=== PATIENT | female | born 1930 | race Caucasian/White ===

== ENCOUNTER 2016-04-29 12:18 | Observation (INO) | payer OTHER ==
[~2016-04-29] VITALS: Ht 160 cm; Wt 58.1 kg
[~2016-04-29 12:18] MED LIST: ACID CONTROL150 MG PO; ADULT LOW STREN81 M2 PO; ADVAIR HFA120 INHAL1 IH; ADVIL200 MG PO; ASPIR-LOW81 MG PO; ASPIRIN325 MG PO; ASPIRIN81 M1 PO; ASPIRIN81 M2 PO; ATORVASTATIN CA80 MG PO; ATROVENT 00.5 MG/2.5 IH; Aspirin E.C. PO; BACTRIM,SEPT1 TABLET PO; BENEMID500 MG PO; CARVEDILOL12.5 MG PO; CARVEDILOL3.125 MG PO; CARVEDILOL6.25 MG PO; CIPRO500 MG PO; CLOPIDOGREL75 MG PO; COLACE100 MG PO; COLCHICINE0.6 M1 PO; COLCRYS0.6 MG PO; COREG3.125 MG PO; COREG6.25 M1 PO; CORTISPORIN EAR10 ML BOTH EARS; COZAAR50 MG PO; Colchicine,Colcrys PO; Coreg PO; Cozaar PO; D-VERT25 MG; DELTASONE10 MG PO; DOCUSATE SODIU100 MG PO; DOXYCYCLINE HY100 MG PO; DUONEB 2.5-0.5 M3 ML IH; ENDOCET 5-3251 EACH PO; EXTRA STRENGTH500 M1 PO; FLAGYL500 MG PO; FUROSEMIDE40 MG PO; GUAIFENESI100 MG/5 M PO; ICY HOT CREAM35.4 G1 TP; IMDUR30 MG PO; IPRATR-ALBUTEROL3 ML IH; ISOSORBIDE DINI30 MG PO; ISOSORBIDE MONO30 MG PO; K-TAB10 MEQ PO; KEFLEX500 MG PO; KENALOG,ARISTOC80 GM TP; KETOCONAZOLE60 GM TP; KLOR-CON 1010 ME1 PO; KLOR-CON M1010 MEQ PO; Keflex PO; LASIX40 MG PO; LAXATIVE SUPPO1 EACH PR; LIPITOR80 MG PO; LO-DOSE ASPIRIN81 M1 PO; LOSARTAN POTAS100 MG PO; LOSARTAN POTASS50 MG PO; MECLIZINE HCL25 MG PO; METRONIDAZOLE500 MG PO; MIRALAX17 GM PO; MOTION SICKNESS25 M1 PO; MULTIVITAMIN1 EAC2 PO; NEOMYCIN-POLYMY10 M1 BOTH EARS; NEOMYCIN-POLYMYXIN-H LEFT EAR; NEXIUM 24HR20 MG PO; NITROQUICK0.4 MG SL; NORVASC10 MG PO; OMEPRAZOLE20 MG PO; PANTOPRAZOLE SO40 MG PO; PENNSAID112 GM TP; PERCOCET 5/31 TABLET PO; PLAVIX75 MG PO; POTASSIUM CHLO10 ME3 PO; POTASSIUM CHLO10 MEQ PO; PREDNISONE10 MG PO; PREDNISONE20 MG PO; PREDNISONE50 MG PO; PRILOSEC20 MG PO; PROAIR HFA8.5 GM; PROMETHAZINE HC25 M1 PO; PROTONIX40 MG PO; PROVENTIL,2.5 MG/3 M IH; RANITIDINE HCL150 M1 PO; ROBITUSSIN100 MG/5 M PO; SIMVASTATIN40 MG PO; SYMBICORT60 INHALA1 IH; SYMBICORT60 INHALAT IH; TAMSULOSIN HCL0.4 MG PO; THERAGRAN1 TABLET PO; TOBRAMYCIN-DEXAM5 ML BOTH EYES; TRAMADOL HCL50 MG PO; TYLENOL EXTRA500 MG PO; TYLENOL REGULA325 MG PO; ULTRAM50 MG PO; VANCOCIN HCL125 MG PO; VOLTAREN 1% GE100 GM TP; WOMEN'S DAILY1 EAC1 PO; XARTEMIS XR 7.1 EACH PO
[2016-04-29 13:37] LABS: HEMATOCRIT 29.4 % (36.0-46.0); MCH 26.3 PG (29.0-34.0); MEAN PLAT.VOLUME 11.1 uM^3 (9.5-12.4); RBC DIS.WIDTH-CV 20.1 % (11.8-14.6); RBC DIS.WIDTH-SD 60.6 % (39-53)
[2016-04-29 13:45] LABS: PLATELET COUNT 205 K/uL (156-360); RED BLOOD COUNT 3.46 M/uL (3.80-5.20); WHITE BLOOD COUNT 4.8 K/uL (4.1-10.2)
[2016-04-29 13:47] LABS: INTER. NORMALIZED RATIO 1.1; PROTHROMBIN TIME 10.7 (9.2-11.2); PTT 31.3 (25-32)
[2016-04-29 13:56] LABS: DELETE MACHINE DIFF? YES; TROP-I INTERPRETATION NEGATIVE; TROPONIN-I 0.02 ng/mL (0.0-0.30)
[2016-04-29 14:04] LABS: CHLORIDE 110 mEq/L (99-109); POTASSIUM 4.6 mEq/L (3.7-5.4); SODIUM 145 mEq/L (136-147)
[2016-04-29 14:05] LABS: GLUCOSE 112 mg/dL (70-99)
[2016-04-29 14:07] LABS: ANION GAP 11 MEQ/L (2-14)
[2016-04-29 14:09] LABS: GFR ESTIMATE (CALCULATED) 38 mL/min/
[2016-04-29 14:10] LABS: UREA NITROGEN (BUN) 17 mg/dL (9-23)
[2016-04-29 14:37] LABS: EOSINOPHIL (%) 1.3 % (0-5); EOSINOPHIL COUNT 0.1 K/uL (0-0.3); HEMATOLOGY COMMENT 1 SMEAR COMPATIBLE; IMMATURE GRANULOCYTE (%) 0.2 % (0.0-0.7); IMMATURE GRANULOCYTE COUNT 0.1 K/uL; LYMPHOCYTE COUNT 0.8 K/uL (1.0-2.8); MONOCYTE (%) 16.4 % (3-12); MONOCYTE COUNT 0.8 K/uL (0-0.8); NEUTROPHIL (%) 65.9 % (45-76); NEUTROPHIL COUNT 3.1 K/uL (1.8-6.4); PLAT.SUFFICIENCY ADEQUATE; USER ID TLW
[2016-04-29] MEDS ORDERED: LOSARTAN POTASS50 MG PO (15:06)
[2016-04-29] MEDS ORDERED: LOSARTAN POTAS100 MG PO (15:07)
[2016-04-29] MEDS ORDERED: FUROSEMIDE40 MG PO (15:09)
[2016-04-29] MEDS ORDERED: ISOSORBIDE MONO30 MG PO (15:09)
[2016-04-29] MEDS ORDERED: TRAMADOL HCL50 MG PO (15:10)
[2016-04-29] MEDS ORDERED: INHALER (15:12)
[2016-04-29 20:40] VITALS: BP 121/65
[2016-04-29 22:09] LABS: TROP-I INTERPRETATION NEGATIVE; TROPONIN-I 0.04 ng/mL (0.0-0.30)
[2016-04-30] VITALS: BP 123/60
[2016-04-30 04:00] VITALS: BP 100/45
[2016-04-30 05:35] LABS: HEMATOCRIT 30.2 % (36.0-46.0); MCH 25.7 PG (29.0-34.0); MCHC 30.1 G/DL (30.0-36.0); MCV 85.3 FL (83-99); MEAN PLAT.VOLUME 11.4 uM^3 (9.5-12.4); PLATELET COUNT 185 K/uL (156-360); RBC DIS.WIDTH-SD 60.8 % (39-53); RED BLOOD COUNT 3.54 M/uL (3.80-5.20); WHITE BLOOD COUNT 3.9 K/uL (4.1-10.2)
[2016-04-30 05:43] LABS: CHLORIDE 112 mEq/L (99-109); POTASSIUM 5.3 mEq/L (3.7-5.4); SODIUM 147 mEq/L (136-147)
[2016-04-30 05:45] LABS: GLUCOSE 132 mg/dL (70-99)
[2016-04-30 05:47] LABS: ANION GAP 10 MEQ/L (2-14); TOTAL BILIRUBIN 0.4 mg/dL (0.0-1.0)
[2016-04-30 05:49] LABS: ALKALINE PHOSPHATASE 63 IU/L (3-129); GFR ESTIMATE (CALCULATED) 32 mL/min/
[2016-04-30 05:50] LABS: UREA NITROGEN (BUN) 22 mg/dL (9-23)
[2016-04-30 05:54] LABS: TROP-I INTERPRETATION NEGATIVE; TROPONIN-I 0.01 ng/mL (0.0-0.30)
[2016-04-30 07:30] VITALS: BP 127/68
[2016-04-30 12:47] VITALS: BP 114/68
[2016-04-30 13:55] LABS: TROP-I INTERPRETATION NEGATIVE; TROPONIN-I 0.02 ng/mL (0.0-0.30)
[2016-04-30 16:08] VITALS: BP 117/63
[2016-04-30] MEDS ORDERED: GUAIFENESIN WI120 M1 PO (17:08)
[2016-04-30] MEDS ORDERED: SORE THROAT LO1 EAC3 MM (17:09)
[2016-04-30] MEDS ORDERED: PREDNISONE10 MG PO (17:10)
[2016-04-30] MEDS ORDERED: CEPHALEXIN500 MG PO (17:11)
== END 2016-04-30 21:30 | disposition home or self-care (01) ==
LOC: EME 12:18 → EDOF 18:23 → 5WEST 18:23
PROVIDERS: Emergency Medicine; Internal Medicine
DX: R07.9 Chest pain, unspecified (principal); I11.0 Hypertensive heart disease with heart failure; I50.9 Heart failure, unspecified; I25.10 Atherosclerotic heart disease of native coronary artery without angina pectoris; I25.2 Old myocardial infarction; Z95.1 Presence of aortocoronary bypass graft; M10.9 Gout, unspecified; F03.90 Unspecified dementia, unspecified severity, without behavioral disturbance, psychotic disturbance, mood disturbance, and anxiety; R06.02 Shortness of breath; I48.0 Paroxysmal atrial fibrillation; M19.90 Unspecified osteoarthritis, unspecified site; Z79.82 Long term (current) use of aspirin; Z79.02 Long term (current) use of antithrombotics/antiplatelets
CPT/HCPCS: 71010; 78582; 80048; 80053; 83880; 84484; 85025; 85027; 85610; 85730; 93005; 94640; 94640 76; 94799; 99202; 99281; 99285; A9540; A9567; G0378; J0696; J1644; J1940; J2920; J7050

== ENCOUNTER 2016-07-13 16:47 | Observation (INO) | payer OTHER ==
[~2016-07-13] VITALS: Ht 160 cm; Wt 59.0 kg
[~2016-07-13 16:47] MED LIST changes: +CEPHALEXIN500 MG PO; +GUAIFENESIN WI120 M1 PO; +INHALER; +SORE THROAT LO1 EAC3 MM
[2016-07-13 18:01] LABS: EOSINOPHIL (%) 0.1 % (0-5); HEMATOCRIT 29.2 % (36.0-46.0); IMMATURE GRANULOCYTE (%) 0.8 % (0.0-0.7); IMMATURE GRANULOCYTE COUNT 0.1 K/uL; INSTRUMENT ABS NEUTROPHIL CT 7.7 K/uL; LYMPHOCYTE COUNT 0.8 K/uL (1.0-2.8); MCH 26.4 PG (29.0-34.0); MCHC 29.1 G/DL (30.0-36.0); MCV 90.7 FL (83-99); MEAN PLAT.VOLUME 11.3 uM^3 (9.5-12.4); MONOCYTE (%) 2.4 % (3-12); MONOCYTE COUNT 0.2 K/uL (0-0.8); NEUTROPHIL (%) 87.6 % (45-76); NEUTROPHIL COUNT 7.7 K/uL (1.8-6.4); PLATELET COUNT 192 K/uL (156-360); RBC DIS.WIDTH-CV 17.2 % (11.8-14.6); RBC DIS.WIDTH-SD 57.3 % (39-53); RED BLOOD COUNT 3.22 M/uL (3.80-5.20); WHITE BLOOD COUNT 8.8 K/uL (4.1-10.2)
[2016-07-13 18:13] LABS: CHLORIDE 105 mEq/L (99-109); POTASSIUM 4.8 mEq/L (3.7-5.4); SODIUM 140 mEq/L (136-147)
[2016-07-13 18:16] LABS: GLUCOSE 217 mg/dL (70-99)
[2016-07-13 18:17] LABS: ANION GAP 7 MEQ/L (2-14); TOTAL BILIRUBIN 0.6 mg/dL (0.0-1.0)
[2016-07-13 18:19] LABS: ALKALINE PHOSPHATASE 41 IU/L (3-129); GFR ESTIMATE (CALCULATED) 32 mL/min/
[2016-07-13 18:20] LABS: UREA NITROGEN (BUN) 34 mg/dL (9-23)
[2016-07-13 18:24] LABS: TROP-I INTERPRETATION NEGATIVE; TROPONIN-I 0.06 ng/mL (0.0-0.30)
[2016-07-13 23:42] VITALS: BP 144/59
[2016-07-14 02:37] LABS: ADD MIUA? NO; BILIRUBIN NEGATIVE; BLOOD NEGATIVE; COLOR YELLOW ((YELLOW)); GLUCOSE (STRIP) NEGATIVE; KETONES NEGATIVE; LEUKOCYTES NEGATIVE; NITRITE NEGATIVE; PROTEIN (STRIP) NEGATIVE; SPECIFIC GRAVITY 1.011 (1.000-1.030); UCUL ADDED? NO; UROBILINOGEN 0.2 MG/DL (0.2-1.0)
[2016-07-14 04:50] VITALS: BP 117/56
[2016-07-14 06:23] LABS: HEMATOCRIT 28.7 % (36.0-46.0); MCH 26.7 PG (29.0-34.0); MCHC 29.6 G/DL (30.0-36.0); MCV 90.3 FL (83-99); MEAN PLAT.VOLUME 11.9 uM^3 (9.5-12.4); PLATELET COUNT 178 K/uL (156-360); RBC DIS.WIDTH-SD 55.8 % (39-53); RED BLOOD COUNT 3.18 M/uL (3.80-5.20); WHITE BLOOD COUNT 7.3 K/uL (4.1-10.2)
[2016-07-14 07:16] LABS: Estimated Average Glucose 151 mg/dL (70-123); HEMOGLOBIN A1c (GLYCOHEMOGLOB) 6.9 % HGB (Below 5.7)
[2016-07-14 07:24] LABS: ALKALINE PHOSPHATASE 37 IU/L (3-129); ANION GAP 5 MEQ/L (2-14); CHLORIDE 107 MEQ/L (99-109); GFR ESTIMATE (CALCULATED) 35 mL/min/; GLUCOSE 168 mg/dL (70-99); SAMPLE HEMOLYSIS CHECK 0; SAMPLE ICTERIC CHECK 0; SAMPLE LIPEMIA CHECK 0; SODIUM 141 MEQ/L (136-147); TOTAL BILIRUBIN 0.5 MG/DL (0.0-1.0); UREA NITROGEN (BUN) 32 mg/dL (9-23)
[2016-07-14 07:32] VITALS: BP 115/83
[2016-07-14 11:48] VITALS: BP 115/53
== END 2016-07-14 17:54 | disposition home or self-care (01) ==
LOC: EME 16:47 → 5WEST 22:00 → EDOF 22:00 → 5WEST 22:00
PROVIDERS: Emergency Medicine; Family Medicine
DX: I95.9 Hypotension, unspecified (principal); E86.0 Dehydration; D64.9 Anemia, unspecified; R10.9 Unspecified abdominal pain; M25.561 Pain in right knee; R51 Headache; I25.10 Atherosclerotic heart disease of native coronary artery without angina pectoris; I25.2 Old myocardial infarction; I11.0 Hypertensive heart disease with heart failure; I50.9 Heart failure, unspecified; M10.9 Gout, unspecified; J44.0 Chronic obstructive pulmonary disease with (acute) lower respiratory infection; J20.9 Acute bronchitis, unspecified; G30.9 Alzheimer's disease, unspecified; F02.80 Dementia in other diseases classified elsewhere, unspecified severity, without behavioral disturbance, psychotic disturbance, mood disturbance, and anxiety; I42.9 Cardiomyopathy, unspecified
CPT/HCPCS: 70450; 71010; 74176; 80048; 80053; 81003; 83036; 83605; 83880; 84484; 85025; 85027; 86850; 86900; 86901; 93005; 94799; 99281; 99285; G0378; J7030; J7512

== ENCOUNTER 2016-07-21 13:11 | Inpatient (IN) | payer OTHER ==
[~2016-07-21] VITALS: Ht 160 cm; Wt 49.3 kg
[2016-07-21 14:01] LABS: EOSINOPHIL (%) 0.5 % (0-5); EOSINOPHIL COUNT 0.1 K/uL (0-0.3); HEMATOCRIT 36.9 % (36.0-46.0); IMMATURE GRANULOCYTE (%) 1.1 % (0.0-0.7); IMMATURE GRANULOCYTE COUNT 0.1 K/uL; INSTRUMENT ABS NEUTROPHIL CT 8.4 K/uL; LYMPHOCYTE COUNT 2.1 K/uL (1.0-2.8); MCH 26.4 PG (29.0-34.0); MCHC 29.3 G/DL (30.0-36.0); MCV 90.2 FL (83-99); MONOCYTE (%) 6.3 % (3-12); MONOCYTE COUNT 0.7 K/uL (0-0.8); NEUTROPHIL (%) 73.6 % (45-76); NEUTROPHIL COUNT 8.4 K/uL (1.8-6.4); PLATELET COUNT 213 K/uL (156-360); RBC DIS.WIDTH-CV 17.2 % (11.8-14.6); RBC DIS.WIDTH-SD 56.2 % (39-53); RED BLOOD COUNT 4.09 M/uL (3.80-5.20); WHITE BLOOD COUNT 11.4 K/uL (4.1-10.2)
[2016-07-21 14:04] LABS: CHLORIDE 106 mEq/L (99-109); SODIUM 144 mEq/L (136-147)
[2016-07-21 14:06] LABS: GLUCOSE 159 mg/dL (70-99)
[2016-07-21 14:07] LABS: ANION GAP 12 MEQ/L (2-14)
[2016-07-21 14:08] LABS: TOTAL BILIRUBIN 0.9 mg/dL (0.0-1.0)
[2016-07-21 14:10] LABS: ALKALINE PHOSPHATASE 53 IU/L (3-129); GFR ESTIMATE (CALCULATED) 30 mL/min/
[2016-07-21 14:11] LABS: UREA NITROGEN (BUN) 34 mg/dL (9-23)
[2016-07-21 15:17] LABS: C DIFF TOXIN POSITIVE (NEGATIVE)
[2016-07-21] MEDS ORDERED: PROAIR HFA8.5 GM IH (15:17)
[2016-07-21] MEDS ORDERED: BROVANA15 MCG/2 M IH (15:17)
[2016-07-21 15:34] LABS: PROBE CHECK PASS
[2016-07-21 21:32] VITALS: BP 125/74
[2016-07-21 23:02] LABS: METH RESISTANT S AUREUS PCR POSITIVE (NEGATIVE)
[2016-07-21 23:14] LABS: PROBE CHECK PASS
[2016-07-22 03:32] VITALS: BP 92/58
[2016-07-22 06:42] LABS: ALKALINE PHOSPHATASE 42 IU/L (3-129); ANION GAP 5 MEQ/L (2-14); CHLORIDE 101 MEQ/L (99-109); GFR ESTIMATE (CALCULATED) 41 mL/min/; POTASSIUM 3.9 MEQ/L (3.7-5.4); SAMPLE HEMOLYSIS CHECK 0; SAMPLE ICTERIC CHECK 0; SAMPLE LIPEMIA CHECK 0; TOTAL BILIRUBIN 0.7 MG/DL (0.0-1.0); UREA NITROGEN (BUN) 28 mg/dL (9-23)
[2016-07-22 06:43] LABS: GLUCOSE 260 mg/dL (70-99); SODIUM 136 MEQ/L (136-147)
[2016-07-22 06:56] LABS: HEMATOCRIT 31.5 % (36.0-46.0); MCHC 30.5 G/DL (30.0-36.0); MCV 88.7 FL (83-99); MEAN PLAT.VOLUME 12.1 uM^3 (9.5-12.4); PLATELET COUNT 155 K/uL (156-360); RBC DIS.WIDTH-CV 16.9 % (11.8-14.6); RED BLOOD COUNT 3.55 M/uL (3.80-5.20); WHITE BLOOD COUNT 7.2 K/uL (4.1-10.2)
[2016-07-22 08:53] VITALS: BP 112/68
[2016-07-22 11:20] VITALS: BP 108/52
[2016-07-22 16:21] VITALS: BP 128/62
[2016-07-22 20:03] VITALS: BP 128/68
[2016-07-23 00:18] VITALS: BP 118/58
[2016-07-23 04:15] VITALS: BP 130/62
[2016-07-23 05:19] LABS: EOSINOPHIL (%) 0 % (0-5); HEMATOCRIT 30.4 % (36.0-46.0); IMMATURE GRANULOCYTE COUNT 0.1 K/uL; INSTRUMENT ABS NEUTROPHIL CT 4.8 K/uL; LYMPHOCYTE COUNT 0.6 K/uL (1.0-2.8); MCH 26.8 PG (29.0-34.0); MCHC 30.6 G/DL (30.0-36.0); MCV 87.6 FL (83-99); MEAN PLAT.VOLUME 11.5 uM^3 (9.5-12.4); MONOCYTE (%) 4.9 % (3-12); MONOCYTE COUNT 0.3 K/uL (0-0.8); NEUTROPHIL (%) 83.3 % (45-76); NEUTROPHIL COUNT 4.8 K/uL (1.8-6.4); PLATELET COUNT 143 K/uL (156-360); RBC DIS.WIDTH-CV 16.6 % (11.8-14.6); RBC DIS.WIDTH-SD 52.8 % (39-53); RED BLOOD COUNT 3.47 M/uL (3.80-5.20); WHITE BLOOD COUNT 5.8 K/uL (4.1-10.2)
[2016-07-23 05:32] LABS: ALKALINE PHOSPHATASE 45 IU/L (3-129); ANION GAP 8 MEQ/L (2-14); CHLORIDE 102 MEQ/L (99-109); GFR ESTIMATE (CALCULATED) 45 mL/min/; GLUCOSE 175 mg/dL (70-99); POTASSIUM 3.5 MEQ/L (3.7-5.4); SAMPLE HEMOLYSIS CHECK 0; SAMPLE ICTERIC CHECK 0; SAMPLE LIPEMIA CHECK 0; SODIUM 138 MEQ/L (136-147); TOTAL BILIRUBIN 0.7 MG/DL (0.0-1.0); UREA NITROGEN (BUN) 21 mg/dL (9-23)
[2016-07-23 07:36] VITALS: BP 128/62
[2016-07-23 12:09] VITALS: BP 128/62
[2016-07-23 15:02] VITALS: BP 128/58
[2016-07-23 23:29] VITALS: BP 100/70
[2016-07-24 08:29] VITALS: BP 148/81
[2016-07-24 16:00] VITALS: BP 134/65
[2016-07-25 00:23] VITALS: BP 129/58
[2016-07-25 08:30] VITALS: BP 140/97
[2016-07-25 16:00] VITALS: BP 159/72
[2016-07-25 17:45] LABS: ADD MIUA? YES; BILIRUBIN NEGATIVE; BLOOD SMALL; COLOR STRAW ((YELLOW)); GLUCOSE (STRIP) NEGATIVE; KETONES NEGATIVE; LEUKOCYTES NEGATIVE; NITRITE NEGATIVE; PROTEIN (STRIP) NEGATIVE; SPECIFIC GRAVITY 1.004 (1.000-1.030); UROBILINOGEN 0.2 MG/DL (0.2-1.0)
[2016-07-25 17:52] LABS: BACTERIA NONE SEEN /HPF; EPITHELIAL CELLS NONE SEEN /HPF; MUCUS NONE SEEN /LPF; RED BLOOD CELLS 0-5 /HPF (0-5); WHITE BLOOD CELLS 0-5 /HPF (0-5)
[2016-07-25 23:09] VITALS: BP 96/63
[2016-07-26 06:27] LABS: HEMATOCRIT 33.8 % (36.0-46.0); MCH 26.8 PG (29.0-34.0); MCHC 29.9 G/DL (30.0-36.0); MCV 89.7 FL (83-99); MEAN PLAT.VOLUME 12.1 uM^3 (9.5-12.4); NRBC (%) 0.5 /100 WBC (0-0); PLATELET COUNT 106 K/uL (156-360); RBC DIS.WIDTH-CV 18.2 % (11.8-14.6); RBC DIS.WIDTH-SD 57.9 % (39-53); RED BLOOD COUNT 3.77 M/uL (3.80-5.20); WHITE BLOOD COUNT 5.7 K/uL (4.1-10.2)
[2016-07-26 07:07] LABS: ALKALINE PHOSPHATASE 43 IU/L (3-129); ANION GAP 11 MEQ/L (2-14); CHLORIDE 106 MEQ/L (99-109); GFR ESTIMATE (CALCULATED) 35 mL/min/; GLUCOSE 157 mg/dL (70-99); SAMPLE HEMOLYSIS CHECK 0; SAMPLE ICTERIC CHECK 0; SAMPLE LIPEMIA CHECK 0; SODIUM 141 MEQ/L (136-147); TOTAL BILIRUBIN 0.6 MG/DL (0.0-1.0); UREA NITROGEN (BUN) 24 mg/dL (9-23)
[2016-07-26 08:27] VITALS: BP 120/62
[2016-07-26 15:37] VITALS: BP 104/58
[2016-07-26 23:56] VITALS: BP 96/57
[2016-07-27 07:00] VITALS: BP 125/57
[2016-07-27 09:03] LABS: BASE EXCESS 0.5 mEq/L (-3 to +3); BICARBONATE 24.5 mEq/L (22-26); CARBOXY HGB 2.7 % (0-5); COMMENTS - BLOOD GASES NEG A+C+; DEVICE ROOM AIR; METHEMOGLOBIN 1.1 % (0-1.5); PCO2 36 mm Hg (35-45); PO2 53 mm Hg (80-100); SITE RR; pH 7.44 (7.35-7.45)
[2016-07-27 09:04] LABS: TOTAL RESP RATE 15 resp/min
[2016-07-27 15:14] VITALS: BP 128/61
[2016-07-27 22:45] VITALS: BP 142/68
[2016-07-28 06:14] LABS: HEMATOCRIT 30.6 % (36.0-46.0); MCH 26.8 PG (29.0-34.0); MCHC 30.4 G/DL (30.0-36.0); MCV 88.2 FL (83-99); NRBC (%) 0.6 /100 WBC (0-0); PLATELET COUNT 86 K/uL (156-360); RBC DIS.WIDTH-SD 57.5 % (39-53); RED BLOOD COUNT 3.47 M/uL (3.80-5.20); WHITE BLOOD COUNT 5.1 K/uL (4.1-10.2)
[2016-07-28 06:44] LABS: ALKALINE PHOSPHATASE 39 IU/L (3-129); ANION GAP 8 MEQ/L (2-14); CHLORIDE 105 MEQ/L (99-109); GFR ESTIMATE (CALCULATED) 35 mL/min/; GLUCOSE 166 mg/dL (70-99); POTASSIUM 4.1 MEQ/L (3.7-5.4); SAMPLE HEMOLYSIS CHECK 0; SAMPLE ICTERIC CHECK 0; SAMPLE LIPEMIA CHECK 0; SODIUM 137 MEQ/L (136-147); TOTAL BILIRUBIN 0.6 MG/DL (0.0-1.0); UREA NITROGEN (BUN) 36 mg/dL (9-23)
[2016-07-28 07:04] VITALS: BP 120/80
[2016-07-28 15:00] VITALS: BP 123/77
[2016-07-28] MEDS ORDERED: PREDNISONE10 MG PO (17:01)
== END 2016-07-28 19:08 | DRG 371 ==
LOC: EME 13:11 → 5EAST 16:00 → EDOF 16:00 → 4EAST 16:00 → EDOF 20:41 → 4EAST 20:52 → 5EAST 07-23 14:51
PROVIDERS: Emergency Medicine; Internal Medicine; Internal Medicine Pulmonary Disease
DX: A04.7 Enterocolitis due to Clostridium difficile (principal); N17.9 Acute kidney failure, unspecified; I95.9 Hypotension, unspecified; E86.0 Dehydration; I50.9 Heart failure, unspecified; I42.0 Dilated cardiomyopathy; G30.9 Alzheimer's disease, unspecified; F02.80 Dementia in other diseases classified elsewhere, unspecified severity, without behavioral disturbance, psychotic disturbance, mood disturbance, and anxiety; I25.10 Atherosclerotic heart disease of native coronary artery without angina pectoris; M19.90 Unspecified osteoarthritis, unspecified site; I11.0 Hypertensive heart disease with heart failure; Z95.1 Presence of aortocoronary bypass graft; J18.9 Pneumonia, unspecified organism; J44.0 Chronic obstructive pulmonary disease with (acute) lower respiratory infection; M1A.9XX0 Chronic gout, unspecified, without tophus (tophi)
CPT/HCPCS: 36600; 71010; 71250; 80053; 81003; 82803; 85025; 85027; 87493; 87641; 94640; 94640 76; 94799; 99202; 99281; 99285; C9113; J1630; J1650; J1940; J2060; J7120; J7512; S0030